=== PATIENT | male | born 1985 | race American Indian/Alaskan Native ===

== ENCOUNTER 2016-09-16 10:04 | Emergency (ER) | payer OTHER ==
[2016-09-16 11:29] LABS: Basophils % (Auto) 0.2 % (0.0-1.8); Eosinophils % (Auto) 0.5 % (0.0-4.3); Hematocrit 46.6 % (35.5-45.6); Hemoglobin 15.1 gm/dl (11.8-15.2); Mean Corpuscular HGB Conc 32 % (32-34); Mean Corpuscular Hemoglobin 26 pg (28-32); Mean Corpuscular Volume 80 fl (84-94); Red Blood Count 5.81 M/mm3 (3.65-5.03); Red Cell Distribution Width 13.5 % (13.2-15.2); White Blood Count 4.8 K/mm3 (4.5-11.0)
[2016-09-16 11:30] LABS: Platelet Count 94 K/mm3 (140-440)
[2016-09-16 11:38] LABS: Alanine Aminotransferase 27 units/L (7-56); Albumin 4.1 g/dL (3.9-5); Albumin/Globulin Ratio 1.1 %; Alkaline Phosphatase 67 units/L (35-129); Anion Gap 15 mmol/L; Bilirubin,Total 0.3 mg/dL (0.1-1.2); Blood Urea Nitrogen 16 mg/dL (9-20); Calcium 8.7 mg/dL (8.4-10.2); Carbon Dioxide 24 mmol/L (22-30); Chloride 104.7 mmol/L (98-107); Glucose 94 mg/dL (75-100); Lipase 25 units/L (13-60); Potassium 4.9 mmol/L (3.6-5.0); Sodium 139 mmol/L (137-145); Total Protein 7.7 g/dL (6.3-8.2)
[2016-09-16 12:20] LABS: Mucus,Urine FEW /HPF
[2016-09-16 12:30] LABS: Bilirubin,Urine NEG (Negative); Blood,Urine NEG (Negative); Ketones,Urine NEG (Negative); Leukocyte Esterase,Urine LG (Negative); Nitrite,Urine NEG (Negative); Protein,Urine <15 mg/dL mg/dL (Negative); Urobilinogen,Urine < 2.0 mg/dL (<2.0)
[2016-09-16] MEDS ORDERED: XYLOCAINE 1% MPF 5 mL INFILTRATI ONE (14:23)
[2016-09-16] MEDS ORDERED: ZITHROMAX PO ONE (14:23)
[2016-09-16] MEDS ORDERED: ROCEPHIN IM ONE (14:23)
--- NOTE | 2016-09-16 14:47 | Emergency Department Report ---
HPI - General Chief Complaint: Abdominal Pain Time Seen by Provider: 09/16/16 14:23 - HPI HPI: This is a 30-year-old Afro-[place] male who presents to the emergency department with the complaint of a 2 day history of suprapubic abdominal discomfort, dysuria and penile discharge. He says the penile discharge is a off -white color and occurs moderately. He denies any lesions to the penis or scrotum and any testicular pain or swelling. Patient says he is occasionally sexually active and it is always been with one partner recently. He denies any previous history of STDs. He has not taken anything for symptoms prior to presentation. No recent travel or sick contacts at home. He does not have a primary care doctor. He denies any fever, back pain, nausea, vomiting. ED Past Medical Hx - Medications Home Medications: Home Medications Medication Instructions Recorded Confirmed Last Taken Type Nitrofurantoin Greenlee/M-Cryst 100 mg PO Q12HR #14 capsule 09/16/16 Unknown Rx [Macrobid CAP] ED Review of Systems ROS: Stated complaint: PAIN IN GROIN/ABD PAIN Other details as noted in HPI Comment: All other systems reviewed and negative Constitutional: denies: chills, fever Eyes: denies: eye pain, eye discharge, vision change ENT: denies: ear pain, throat pain Respiratory: denies: cough, shortness of breath, wheezing Cardiovascular: denies: chest pain, palpitations Gastrointestinal: abdominal pain. denies: nausea, vomiting Genitourinary: dysuria, discharge Musculoskeletal: denies: back pain, joint swelling, arthralgia Skin: denies: rash, lesions Neurological: denies: headache, weakness, paresthesias Physical Exam - Physical Exam Vital Signs: Vital Signs 09/16/16 10:33 Temperature 98.2 F Pulse Rate 83 Respiratory 16 Rate Blood Pressure 124/88 O2 Sat by Pulse 100 Oximetry Physical Exam: GENERAL: The patient is well-developed well-nourished. HEENT: Normocephalic. Atraumatic. Extraocular motions are intact. Patient has moist mucous membranes. Pupils equal reactive to light bilaterally. NECK: Supple. Trachea is midline. CHEST/LUNGS: Clear to auscultation. There is no respiratory distress noted. HEART/CARDIOVASCULAR: Regular. There is no tachycardia. There is no gallop rub or murmur. ABDOMEN: Abdomen is soft. Mild suprapubic tenderness to palpation. No guarding or rebound tenderness. Patient has normal bowel sounds. There is no abdominal distention. SKIN: Skin is warm and dry. : Deferred NEURO: The patient is awake, alert, and oriented. The patient is cooperative. The patient has no focal neurologic deficits. The patient has normal speech. MUSCULOSKELETAL: There is no tenderness or deformity. There is no limitation range of motion. There is no evidence of acute injury. ED Course Vital Signs 09/16/16 10:33 Temperature 98.2 F Pulse Rate 83 Respiratory 16 Rate Blood Pressure 124/88 O2 Sat by Pulse 100 Oximetry ED Medical Decision Making - Lab Data Result diagrams: 09/16/16 11:02 09/16/16 11:02 - Medical Decision Making This is a 30-year-old male who presents to the emergency department with complaint of suprapubic abdominal pain and some dysuria and discharge. Patient says that he is sexually active occasionally with one particular partner. Labs show a significant urinary tract infection but there is no renal insufficiency or leukocytosis or any other abnormality seen. He'll be treated for urethritis with Rocephin and azithromycin as well as being placed on some antibiotics for a urinary tract infection. We discussed safe sex practices. Patient deferred any physical examination of the genitalia. He'll be given referrals for primary care. - Differential Diagnosis UTI, Urethritis, Pyelonephritis, COlitis Critical Care Time: No Critical care attestation.: If time is entered above; I have spent that time in minutes in the direct care of this critically ill patient, excluding procedure time. ED Disposition Clinical Impression: Urethritis UTI (urinary tract infection) Qualifiers: Urinary tract infection type: acute cystitis Hematuria presence: without hematuria Qualified Code(s): N30.00 - Acute cystitis without hematuria Disposition: DISCHARGED TO HOME OR SELFCARE Is pt being admited?: No Does the pt Need Aspirin: No Condition: Good Instructions: Nonspecific Urethritis in Men (ED), Urinary Tract Infection in Men (ED) Additional Instructions: Please follow-up with a primary care doctor in the next few days. You should avoid any sexual activity for at least 1 week after treatment today. Return to the emergency department with any worsening of your symptoms or any acute distress. Prescriptions: Nitrofurantoin Greenlee/M-Cryst [Macrobid CAP] 100 mg PO Q12HR #14 capsule Referrals: PRIMARY CARE, [Primary Care Provider] - 3-5 Days ISAIAH SON MD [Staff Physician] - 3-5 Days [facility] [Outside] - 3-5 Days Forms: STI Treatment and Prevention Time of Disposition: 14:51
[2016-09-16 15:00] VITALS: BP 115/75
== END 2016-09-16 15:39 | disposition home or self-care (01) ==
LOC: ED 10:04
DX: N34.2 Other urethritis (principal); N30.00 Acute cystitis without hematuria
CPT/HCPCS: 36415; 80053; 81001; 83690; 85025; 96372; 99283; J0696